=== PATIENT | male | born 1970 | race Caucasian/White ===

== ENCOUNTER → 2023-10-14 | Outpatient (CLI) | payer BC, SELFPAY ==
[2023-10-14 17:58] LABS: Cholesterol 162 mg/dL (200); High Density Lipoprotein 40 mg/dL; PSA,Total - Annual Screen 1.31 ng/mL (0.00-4.00); Triglycerides 293 mg/dL; Very Low Density Lipoprotein 59 mg/dL (5-40)
[2023-10-14 18:06] LABS: Hemoglobin A1c 5.4 % (3.8-5.6)
== END | disposition home or self-care (01) ==
LOC: BFHLAB 15:04
PROVIDERS: PCP Family Medicine; Visit Provider Family Medicine
DX: Z00.00 Encounter for general adult medical examination without abnormal findings (principal); Z12.5 Encounter for screening for malignant neoplasm of prostate
CPT/HCPCS: 36415; 80061; 83036; 84153; G0103

== ENCOUNTER → 2024-06-05 | Outpatient (CLI) | payer BC, SELFPAY ==
[2024-06-05 12:03] LABS: Absolute Lymphocyte Count 1.69 X10^3/uL (0.83-4.51); Absolute Neutrophil Count 2.5 X10^3/uL (2.0-7.7); Basophil# 0.03 X10^3/uL; Basophil% 0.6 % (0-1); Eosinophil# 0.22 X10^3/uL; Eosinophils% 4.4 % (0-5); Hematocrit 45.7 % (40-54); Hemoglobin 15.7 g/dL (13.0-16.5); Lymphocyte # 1.69 X10^3/ul (0.83-4.51); Lymphocyte % 34.1 % (19-41); Mean Corp Hgb Conc 34.4 g/dL (32-36); Mean Corpuscular Volume 87.4 fL (80-94); Mean Platelet Vol. 10.2 fl (6.2-12.0); Monocyte% 10.1 % (0-10); NRBC Flagged by Analyzer 0 % (0-5); Neutrophil # 2.51 X10^3/uL (2.7-7.7); Neutrophil % 50.6 % (47-70); Platelet Count 188 K/mm3 (150-450); RBC Distribution Width CV 11.9 % (11.6-14.6); RBC Distribution Width SD 37.7 fl (35.1-43.9); Red Blood Count 5.23 M/mm3 (4.6-6.2)
[2024-06-05 12:27] LABS: BNP,B-Type NATRIURETIC PEPTIDE 11.2 pg/mL (0-100)
[2024-06-05 12:34] LABS: AST(SGOT) 15 U/L (15-37); Alanine Aminotransfer ALT/SGPT 33 U/L (16-61); Albumin, Serum 3.9 g/dL (3.2-5.0); Alkaline Phosphatase 61 U/L (45-117); Anion Gap 5 (5-15); BUN 12 mg/dL (7-18); BUN/Creat Ratio 15.1 RATIO (10-20); Calcium,Total 9.4 mg/dL (8.5-10.1); Chloride 106 mmol/L (98-107); EST Glomerular Filtration Rate 108 mL/min (>60); Est Glom Filt Rate - Afr Amer 130 mL/min (>60); Glucose 117 mg/dL (74-106); Potassium 4.2 mmol/L (3.5-5.1); Protein, Total 7.9 g/dL (6.4-8.2); Sodium Level 136 mmol/L (136-145)
== END | disposition home or self-care (01) ==
LOC: BFHLAB 10:46
PROVIDERS: PCP Nurse Practitioner Family; Referring Provider Nurse Practitioner Family; Visit Provider Nurse Practitioner Family
DX: R60.0 Localized edema (principal); Z82.49 Family history of ischemic heart disease and other diseases of the circulatory system
CPT/HCPCS: 36415; 80053; 83880; 85025

== ENCOUNTER → 2024-06-27 | Outpatient (CLI) | payer BC, SELFPAY ==
--- NOTE | 2024-06-27 14:02 | VDLE_ITS ---
Reason For Study: Venous Incompetence RIGHT LEFT CFV is compressible, spontaneous, phasic, CFV is compressible, spontaneous, phasic, competent and demonstrates normal competent, and demonstrates normal augmentation. augmentation. FV is compressible, spontaneous, phasic, FV is compressible, spontaneous, phasic, competent and demonstrates normal competent and demonstrates normal augmentation. augmentation. POP V is compressible, spontaneous, phasic, POP V is compressible, spontaneous, phasic, competent and demonstrates normal competent and demonstrates normal augmentation. augmentation. T/P Trunk is compressible. T/P Trunk is compressible. PTV is compressible. PTV is compressible. RT PerV is compressible. LT PerV is compressible. SFJ is competent and measures 0.61 cm. SFJ is competent and measures 0.74 cm. GSV proximal thigh measures 0.37 x 0.37 cm. GSV proximal thigh measures 0.57 x 0.58 cm. GSV at knee measures 0.42 x 0.44 cm. GSV at knee measures 0.49 x 0.48 cm. GSV is competent throughout. GSV INCOMPETENT throughout for greater than SSV at junction is competent and measures 0.5 seconds. 0.59 cm. SSV at junction is competent and measures SSV proximal calf is competent and measures 0.51 cm. 0.40 x 0.45 cm. SSV proximal calf is competent and measures SSV mid calf is INCOMPETENT for greater than 0.40 x 0.43 cm. 0.5 seconds and measures 0.41 x 0.41 cm. Procedure Exam performed in department. This is a venous duplex using B-mode, color flow and spectral Doppler. The exam was diagnostic. Patient was scanned in reverse Trendelenburg position during reflux assessment. VL/Venous Duplex US - Arnoldo Extrem Interpretation Summary Deep veins of the bilateral lower extremities are patent and compressible segme ntally. There is no evidence of bilateral lower extremity deep vein thrombosis. The bilateral great saphenous vein appears patent and compressible segmentally. Positive for reflux in the right small saphenous vein Positive for reflux in the left great saphenous vein throughout. Ordering Physician: Mehnaz Dodd Referring Physician: Surendra Pablo Performed By: Tong Hatch RVT
== END | disposition home or self-care (01) ==
PROVIDERS: PCP Family Medicine; Referring Provider Nurse Practitioner Family; Visit Provider Nurse Practitioner Family
DX: I87.2 Venous insufficiency (chronic) (peripheral) (principal); R60.0 Localized edema; M79.604 Pain in right leg; M79.605 Pain in left leg
CPT/HCPCS: 93970

== ENCOUNTER → 2025-03-05 | Outpatient (CLI) | payer BC, SELFPAY ==
[2025-03-05 17:17] LABS: PSA,Total - Annual Screen 1.92 ng/mL (0.02-4.00)
--- OUTSIDE RECORDS SUMMARY | 2025-03-05 23:04 | XMS RPT_ITS | CCD ---
Author Organization [facility] Inform ion Partnership [facility] Care Team Providers Care Police Officer Name Role Phone Lauryn Campbell Unavailable [facility] Unavailable Unavailable Karen James Unavailable Unavailable Karen James Unavailable Unavailable [facility] Unavailable Unavailable [facility] Unavailable Unavailable Emmanuel Pacheco Unavailable Unavailable [facility] Unavailable Unavailable Karen James Unavailable Unavailable Karen James Unavailable Unavailable [facility] Unavailable Unavailable Rey Stoner Unavailable Unavailable Rey Stoner C Unavailable Unavailable Rey Stoner Unavailable Unavailable Herbie Rey C Unavailable Unavailable LOIDA CROWELL Admitting Unavailable LOIDA CROWELL Referring Unavailable GOYO PABLO Primary Care Unavailable LOIDA CROWELL Attending Unavailable GOYO PABLO Primary Care Unavailable Goyo Pablo Primary Care Provider Goyo Pablo Primary Care Unavailable Goyo Pablo Attending Unavailable Yousif, Mehnaz Primary Care Unavailable Yousif, Mehnaz Attending Unavailable Yousif, Mehnaz Referring Unavailable Yousif, Mehnaz Attending Unavailable Yousif, Mehnaz Referring Unavailable Goyo Pablo Primary Care Unavailable Yousif, Mehnaz Primary Care Unavailable Yousif, Mehnaz Referring Unavailable Iain Arias Attending Unavailable Allergies Allergy Classification Reported Allergen(s) Allergy Type Date of Onset Reaction(s) Facility (6 sources) cultivated mushroom allergenic extract; Translations: [MUSHROOM] Propensity to adverse reactions to drug 01-09-[address] [facility] (2 sources) cultivated mushroom extract Drug Allergy 01-09-[address] [facility] Medications Current Medications Medication Drug Class(es) Dates Sig (Normalized) Sig (Original) multivitamin (multivitamin) per tablet (2 sources) take 1 tablet by mouth once daily multivitamin (multivitamin) per tablet Take 1 tablet by mouth daily. 0 Active Multivitamin Tablet (2 sources) take 1 tablet by mouth once daily multivitamin (multivitamin) per tablet Take 1 tablet by mouth daily. Active Completed/Discontinued Medications Medication Drug Class(es) Dates Sig (Normalized) Sig (Original) acetaminophen 325 mg / oxyCODONE hydrochloride 5 mg oral tablet (4 sources) Opioid Agonist Start: 03-20-2018 End: 10-09-2020 take 1 tablet by mouth every six hours as needed for pain oxyCODONE-acetamino phen (PERCOCET) 5-325 mg per tablet Indications: Labral tear of shoulder, left, subsequent encounter , Contusion of left shoulder, initial encounter Take 1 (one) tablet by mouth every 6 (six) hours as needed for pain for pain. 30 tablet 0 03/20/2018 10/09/2020 Discontinued (Discontinued by another clinician) Start: 03-03-2018 End: 03-20-2018 take 5-325 tablets by mouth once for pain oxyCODONE-acetaminophen (PERCOCET) 5-325 mg per tablet Take 5-325 tablets by mouth for pain. 0 03/03/2018 03/20/2018 Discontinued ibuprofen 200 mg oral tablet (5 sources) Nonsteroidal Anti-inflammatory Drug End: 10-09-2020 take 4 tablets by mouth every six hours as needed ibuprofen (ADVIL,MOTRIN) 200 MG tablet Take 800 mg by mouth every 6 (six) hours as needed for pain. 0 10/09/2020 Discontinued (Discontinued by another clinician) Problems Active Problems Problem Classification Problem Date Documented Date Episodic/Chronic Other diseases of veins and lymphatics (1 source) Venous insufficiency (chronic) (peripheral); Translations: [Venous insufficiency (chronic) (peripheral)] Onset: 07-18-2024 Episodic Residual codes; unclassified (1 source) Localized edema; Translations: [Localized edema] Onset: 06-26-2024 Episodic Sprains and strains (2 sources) Glenoid labrum tear Episodic Unclassified (1 source) Acute tear of medial meniscus of left knee; Translations: [Acute medial meniscus tear of left knee, initial encounter] Past or Other Problems Problem Classification Problem Date Documented Da te Episodic/Chronic Unclassified (2 sources) Contusion of left shoulder, initial encounter Results Test Name Value Interpretation Reference Range Facility Venous Duplex US - Arnoldo Extre mon 06-27-2024 Venous Duplex US - Arnoldo [facility] [address] [place] [address] Venous Duplex US - Arnoldo [facility] 06/27/24 1406 MR#: [id number] Acct: [id number] Name: GEORGE FLORES II Rep #: [id number] : 1970 54 From: Iain Arias MD Attending Dr: BELL Richards Status: REG CL I Ordering Dr: Mehnaz Dodd Date: 06/27/24 Location: CVS Sex: M C Admitted: Reason For Study: Venous Incompetence RIGHT LEFT CFV is compressible, spontaneous, phasic, CFV is compressible, spontaneous, phasic, competent and demonstrates normal competent, and demonstrates normal augmentation. augmentation. FV is compressible, spontaneous, phasic, FV is compressible, spontaneous, phasic, competent and demonstrates normal competent and demonstrates normal augmentation. augmentation. POP V is compressible, spontaneous, phasic, POP V is compressible, spontaneous, phasic, competent and demonstrates normal competent and demonstrates normal augmentation. augmentation. T/P Trunk is compressible. T/P Trunk is compressible. PTV is compressible. PTV is compressible. RT PerV is compressible. LT PerV is compressible. SFJ is competent and measures 0.61 cm. SFJ is competent and measures 0.74 cm. GSV proximal thigh measures 0.37 x 0.37 cm. GSV proximal thigh measures 0.57 x 0.58 cm. GSV at knee measures 0.42 x 0.44 cm. GSV at knee measures 0.49 x 0.48 cm. GSV is competent throughout. GSV INCOMPETENT throughout for greater than SSV at junction is competent and measures 0.5 seconds. 0.59 cm. SSV at junction is competent and measures SSV proximal calf is competent and measures 0.51 cm. 0.40 x 0.45 cm. SSV proximal calf is competent and measures SSV mid calf is INCOMPETENT for greater than 0.40 x 0.43 cm. 0.5 seconds and measures 0.41 x 0.41 cm. Procedure Exam performed in department. This is a venous duplex using B-mode, color flow and spectral Doppler. The exam was diagnostic. Patient was scanned in reverse Trendelenburg position during reflux assessment. VL/Venous Duplex US - Arnoldo Extrem Interpretation Summary Deep veins of the bilateral lower extremities are patent and compressible segmentally. There is no evidence of bilateral lower extremity deep vein thrombosis. The bilateral great saphenous vein appears patent and compressible segmentally. Positive for reflux in the right small saphenous vein Positive for reflux in the left great saphenous vein throughout. Ordering Physician: Mehnaz Dodd Referring Physician: Goyo Pablo Performed By: Tong Hatch [place] 06/27/24 1620 Date Iain Arias MD CC: HOME ENERGY RATER-C Mehnaz Dodd; Dr. Goyo Pablo DO Date Dictated: 06/27/24 1406 Date Transcribed: 06/27/241619 Professor Of English: Signed Normal [facility] BNP,B-Type NATRIURETIC PEPTI Simran 2024 Natriuretic peptide B (Bld) [Mass/Vol] 11.2 pg/mL Normal 0-100 [facility] Comment on above: Performed By: #### L 500.4050, L100.0100, L503.6620 #### [facility] [address] [place], [address] CBC W/Diff, Automatedon 05-27 Absolute Lymph 1.69 X10 3/uL Normal 0.83-4.51 [facility] Comment on above: Performed By: #### L 500.4050, L100.0100, L503.6620 #### [facility] [address] [place], [address] Absolute Neut 2.5 X10 3/uL Normal 2.0-7.7 [facility] Comment on above: Performed By: #### L 500.4050, L100.0100, L503.6620 #### [facility] [address] [place], [address] Basophils/100 WBC (Bld) 0.6 % Normal 0-1 [facility] Comment on above: Performed By: #### L 500.4050, L100.0100, L503.6620 #### [facility] [address] [place], [address] Eosinophils/100 WBC (Bld) 4.4 % Normal 0-5 [facility] Comment on above: Performed By: #### L 500.4050, L100.0100, L503.6620 #### [facility] [address] [place], [address] Erythrocyte distribution width (RBC) [Ratio] 11.9 % Normal 11.6-14.6 [facility] Comment on above: Performed By: #### L 500.4050, L100.0100, L503.6620 #### [facility] [address] [place], [address] Hematocrit (Bld) [Volume fraction] 45.7 % Normal 40-54 [facility] Comment on above: Performed By: #### L 500.4050, L100.0100, L503.6620 #### [facility] [address] [place], [address] Hemoglobin (Bld) [Mass/Vol] 15.7 g/dL Normal 13.0-16.5 [facility] Comment on above: Performed By: #### L 500.4050, L100.0100, L503.6620 #### [facility] [address] [place], [address] IG% 0.200 Normal 0.0-0.9 [facility] Comment on above: Result Comment: IG% - Immature Granulocytes (promyelocytes, myelocytes and metamyelocytes) > 1% indicates that a LEFT SHIFT is Present. Performed By: #### L 500.4050, L100.0100, L503.6620 #### [facility] [address] [place], [address] Lymphocytes/100 WBC (Bld) 34.1 % Normal 19-41 [facility] Comment on above: Performed By: #### L 500.4050, L100.0100, L503.6620 #### [facility] [address] [place], [address] MCH (RBC) [Entitic mass] 30.0 pg Normal 27.0-32.0 [facility] Comment on above: Performed By: #### L 500.4050, L100.0100, L503.6620 #### [facility] [address] [place], [address] MCHC (RBC) [Mass/Vol] 34.4 g/dL Normal 32-36 [facility] Comment on above: Performed By: #### L 500.4050, L100.0100, L503.6620 #### [facility] [address] [place], [address] MCV (RBC) [Entitic vol] 87.4 fL Normal 80-94 [facility] Comment on above: Performed By: #### L 500.4050, L100.0100, L503.6620 #### [facility] [address] [place], [address] Monocytes/100 WBC (Bld) 10.1 % High 0-10 [facility] Comment on above: Performed By: #### L 500.4050, L100.0100, L503.6620 #### [facility] [address] [place], [address] Neutrophils/100 WBC (Bld) 50.6 % Normal 47-70 [facility] Comment on above: Performed By: #### L 500.4050, L100.0100, L503.6620 #### [facility] [address] [place], [address] Nucleated RBC (Bld) [#/Vol] 0 10*3/uL Normal 0-5 [facility] Comment on above: Performed By: #### L 500.4050, L100.0100, L503.6620 #### [facility] [address] [place], [address] Platelet mean volume (Bld) [Entitic vol] 10.2 fL Normal 6.2-12.0 [facility] Comment on above: Performed By: #### L 500.4050, L100.0100, L503.6620 #### [facility] [address] [place], [address] Platelets (Bld) [#/Vol] 188 10*3/uL Normal 150-450 [facility] Comment on above: Performed By: #### L 500.4050, L100.0100, L503.6620 #### [facility] [address] [place], [address] RBC (Bld) [#/Vol] 5.23 10*6/uL Normal 4.6-6.2 [facility] Comment on above: Performed By: #### L 500.4050, L100.0100, L503.6620 #### [facility] [address] [place], [address] RDW SD 37.7 fl Normal 35.1-43.9 [facility] Comment on above: Performed By: #### L 500.4050, L100.0100, L503.6620 #### [facility] [address] [place], [address] WBC (Bld) [#/Vol] 5.0 10*3/uL Normal 4.4-11.0 [facility] Comment on above: Performed By: #### L 500.4050, L100.0100, L503.6620 #### [facility] [address] [place], [address] Comprehensive Metabolic Prof ilon 2024 Albumin [Mass/Vol] 3.9 g/dL Normal 3.2-5.0 [facility] Comment on above: Performed By: #### L 500.4050, L100.0100, L503.6620 #### [facility] [address] [place], [address] Albumin/Globulin [Mass ratio] 1.0 {ratio} Normal 0.9-2.4 [facility] Comment on above: Performed By: #### L 500.4050, L100.0100, L503.6620 #### [facility] [address] [place], [address] ALK P 61 U/L Normal 45-117 [facility] Comment on above: Performed By: #### L 500.4050, L100.0100, L503.6620 #### [facility] [address] [place], [address] ALT [Catalytic activity/Vol] 33 U/L Normal 16-61 [facility] Comment on above: Performed By: #### L 500.4050, L100.0100, L503.6620 #### [facility] [address] [place], [address] AST [Catalytic activity/Vol] 15 U/L Normal 15-37 [facility] Comment on above: Performed By: #### L 500.4050, L100.0100, L503.6620 #### [facility] [address] [place], [address] Bilirubin [Mass/Vol] 0.60 mg/dL Normal 0.20-1.00 [facility] Comment on above: Result Comment: For patients on eltrombopag therapy, use of Dimension [place] TBIL is not recommended. Performed By: #### L 500.4050, L100.0100, L503.6620 #### [facility] [address] [place], [address] BUN/CRE 15.1 RATIO Normal 10-20 [facility] Comment on above: Performed By: #### L 500.4050, L100.0100, L503.6620 #### [facility] [address] [place], [address] CA,Total 9.4 mg/dL Normal 8.5-10.1 [facility] Comment on above: Performed By: #### L 500.4050, L100.0100, L503.6620 #### [facility] [address] [place], [address] Chloride [Moles/Vol] 106 mmol/L Normal 98-107 [facility] Comment on above: Performed By: #### L 500.4050, L100.0100, L503.6620 #### [facility] [address] [place], [address] CO2 [Moles/Vol] 25.0 mmol/L Normal 21.0-32.0 [facility] Comment on above: Performed By: #### L 500.4050, L100.0100, L503.6620 #### [facility] [address] [place], [address] Creatinine [Mass/Vol] 0.80 mg/dL Normal 0.70-1.30 [facility] Comment on above: Result Comment: The validity of the calculated GFR GFRAA in patients over 70 years has not been determined. Clinical correlation is essential. Performed By: #### L 500.4050, L100.0100, L503.6620 #### [facility] [address] [place], [address] EST GFR - AA 130 mL/min Normal >60 [facility] Comment on above: Result Comment: Afri can Russian GFR Calc Performed By: #### L 500.4050, L100.0100, L503.6620 #### [facility] [address] [place], [address] GAP 5 Normal 5-15 [facility] Comment on above: Performed By: #### L 500.4050, L100.0100, L503.6620 #### [facility] [address] [place], [address] GFR/1.73 sq M.predicted among non-blacks MDRD (S/P/Bld) [Vol rate/Area] 108 mL/min/{1.73_m2} Normal >60 [facility] Comment on above: Result Comment: Non- GFR Calc Performed By: #### L 500.4050, L100.0100, L503.6620 #### [facility] [address] [place], [address] Globulin (S) [Mass/Vol] 4.0 g/dL Normal 2.2-4.2 [facility] Comment on above: Performed By: #### L 500.4050, L100.0100, L503.6620 #### [facility] [address] [place], [address] Glucose [Mass/Vol] 117 mg/dL High 74-106 [facility] Comment on above: Result Comment: Fast ing Glucose result from 100 to 125 mg/dL suggests IMPAIRED HOMEOSTASIS per A.D.A. criteria. Performed By: #### L 500.4050, L100.0100, L503.6620 #### [facility] [address] [place], [address] Potassium [Moles/Vol] 4.2 mmol/L Normal 3.5-5.1 [facility] Comment on above: Performed By: #### L 500.4050, L100.0100, L503.6620 #### [facility] [address] [place], [address] Sodium [Moles/Vol] 136 mmol/L Normal 136-145 [facility] Comment on above: Performed By: #### L 500.4050, L100.0100, L503.6620 #### [facility] [address] [place], [address] T PROT 7.9 g/dL Normal 6.4-8.2 [facility] Comment on above: Performed By: #### L 500.4050, L100.0100, L503.6620 #### [facility] [address] [place], [address] Urea nitrogen [Mass/Vol] 12 mg/dL Normal 7-18 [facility] Comment on above: Performed By: #### L 500.4050, L100.0100, L503.6620 #### [facility] [address] [place], [address] Basophil percentageOrdered B y: Goyo Pablo on 10-14-2023 Cholesterol [Mass/Vol] 162 mg/dL <200 [facility] Comment on above: <200 mg/dL Desirable 200-240 mg/dL Borderline >240 mg/dL High Risk Triglyceride [Mass/Vol] 293 mg/dL <199 [facility] Comment on above: The drugs N-Acetylcy steine and Metamizole may falsely depress this assay.Serum Triglycerides Reference Interval Normal <150 mg/dL Borderline high 150 - 199 mg/dL High 200 - 499 mg/dL Very High > or = 500 mg/dL Hemoglobin A1con 10-14-2023 HbA1c (Bld) [Mass fraction] 5.4 % Normal 3.8-5.6 [facility] Comment on above: Result Comment: Norm al < 5.7 % Prediabetic 5.7 - 6.4 % Diabetic >or= 6.5 % Please note range changes. Performed By: #### L 500.4100, L501.9985, L501.9910 #### [facility] [address] [place], [address] High density lipoprotein (HD L) measurementOrdered By: Goyo Pablo on 10-14-2023 Cholesterol in HDL (Body fld) [Mass/Vol] 40 mg/dL >40 [facility] Comment on above: The drugs N-Acetylcy steine and Metamizole may falsely depress this assay. Reference Range HDL <40 mg/dL Low HDL Cholesterol HDL >or= 60 mg/dL High HDL Cholesterol Lipid Profileon 10-14-2023 Cholesterol [Mass/Vol] 162 mg/dL Normal 200 [facility] Comment on above: Result Comment: <200 mg/dL Desirable 200-240 mg/dL Borderline >240 mg/dL High Risk Performed By: #### L 500.4100, L501.9985, L501.9910 #### [facility] [address] [place], [address] Cholesterol in HDL [Mass/Vol] 40 mg/dL Normal [facility] Comment on above: Result Comment: The drugs N-Acetylcysteine and Metamizole may falsely depress this assay. Reference Range HDL <40 mg/dL Low HDL Cholesterol HDL >or= 60 mg/dL High HDL Cholesterol Performed By: #### L 500.4100, L501.9985, L501.9910 #### [facility] [address] [place], [address] Cholesterol in LDL [Mass/Vol] 63 mg/dL Normal 0-130 [facility] Comment on above: Performed By: #### L 500.4100, L501.9985, L501.9910 #### [facility] [address] [place], [address] Cholesterol in VLDL [Mass/Vol] 59 mg/dL High 5-40 [facility] Comment on above: Performed By: #### L 500.4100, L501.9985, L501.9910 #### [facility] [address] [place], [address] Triglyceride [Mass/Vol] 293 mg/dL High [facility] Comment on above: Result Comment: The drugs N-Acetylcysteine and Metamizole may falsely depress this assay. Serum Triglycerides Reference Interval Normal <150 mg/dL Borderline high 150 - 199 mg/dL High 200 - 499 mg/dL Very High > or = 500 mg/dL Performed By: #### L 500.4100, L501.9985, L501.9910 #### [facility] [address] [place], [place], [id number] Low density lipoprotein (LDL ) cholesterol measurementOrdered By: Goyo Pablo on 10-14-2023 Cholesterol in LDL (Body fld) [Moles/Vol] 63 mg/dL 0-130 [facility] PSA,Total - Annual Screenon 10-14-2023 PSA,TOT SCREEN 1.31 ng/mL Normal 0.00-4.00 [facility] Comment on above: Result Comment: This test was performed using the TPSA assay method for the [employer] chemistry system. Values obtained with different assay methods cannot be used interchangably. When changing PSA assays in the course of monitoring a patient, additional sequential testing should be carried out to confirm baseline values. Performed By: #### L 500.4100, L501.9985, L501.9910 #### [facility] [address] [place], [place], [id number] Screening prostate specific antigen (PSA) measurementOrdered By: Goyo Pablo on 10-14-2023 Prostate specific Ag IA [Mass/Vol] 1.31 ng/mL 0.00-4.00 [facility] Comment on above: This test was perfor med using the TPSA assay method for [employer] chemistry system. Values obtained with differentassay methods cannot be used interchangably.When changing PSA assays in the course of monitoring apatient, additional sequential testing should be carriedout to confirm baseline values. Very low density lipoprotein (VLDL) cholesterol measurementOrdered By: Goyo Pablo on 10-14-2023 Cholesterol in VLDL Calc [Moles/Vol] 59 mg/dL 5-40 [facility] Whole blood hemoglobin A1c/t otal hemoglobin ratio (mass fraction)Ordered By: Goyo Pablo on 10-14-2023 HbA1c (Bld) [Mass fraction] 5.4 % 3.8-5.6 [facility] Comment on above: Normal < 5.7 % Predi abetic 5.7 - 6.4 % Diabetic >or= 6.5 % Please note range changes. Provider Note - ED v2on 04-0 Provider Note - ED v2 Provider Note - ED v2: Chart Review: ED NOTES ED NOTES: HPI: Patient is a 50-year-old male chief complaint of low back pain. Started at the end of dinner this evening around 530. Had abrupt onset of sharp low back pain. States it was about a 10 out of 10 and almost took his breath away. He was on both sides of the low back. Did not lose control of bowel or bladder. No loss of function. Gradually reduced to about a 7 out of 10 which is where it is now. He is ambulatory. His drove him in. ROS: All systems are negative other than as noted in HPI. Physical Exam I have reviewed the triage vital signs. Const: Well nourished, well developed, appears stated age, no acute distress Eyes: PERRL, EOM intact, no conjunctival injection, vision grossly normal HENT: Neck supple without meningismus , Moist mucous membranes, no pharyengeal swelling or exudate CV: Regular rate and rhythm, Warm, well-perfused extremities. Chest non tender RESP: Lungs clear bilaterally, Unlabored respiratory effort GI: soft, non-tender, non-distended, no masses : MSK: No gross deformities appreciated. Focal tenderness bilateral PSIS. No significant midline tenderness. Straight leg raise negative bilaterally. Normal sensation and strength. No saddle anesthesia. Skin: Warm, dry. No rashes Neuro: Alert and oriented x4, GCS 15 , college tutor II-XII grossly intact. Sensation and motor function of extremities grossly intact. Psych: Appropriate mood and affect. HISTORY OF PRESENTING ILLNESS GEORGE is a 50 year old Male and was seen by me at 29-Dec-2020 20:55 for a chief complaint of back pain (lower back pain that started around 1730 this evening. radiates around right side. denies injury.)(1). Triage Information: Most recent Vital Sign Value Date Temp (F): 98.5 12-29-2020 19:45 Temp (C): 36.9 12-29-2020 19:45 Heart Rate (beats/min): 86 12-29-2020 19:45 Respirations (breaths/min): 18 12-29-2020 19:45 SpO2 (%): 94 12-29-2020 19:45 BP Systolic (mm Hg): 143 12-29-2020 19:45 BP Diastolic (mm Hg): 92 12-29-2020 19:45 PAST MEDICAL HISTORY ATTESTATION: I have reviewed and confirmed nurse's/medic's notes for patient's medications, allergies, and medical, surgical, family and social history ALLERGIES/INTOLERANCES: No Known Allergies HEALTH HISTORY: No documented data. OUTPATIENT MEDICATIONS: Home Medications Review Status for Reconciliation: N/A Med Status: Patient Currently Takes Medications Drug Name: Naprosyn 500 mg oral tablet Instructions: 1 tab(s) orally 2 times a day x 10 days SIGNIFICANT EVENTS: Past Medical History Description:pt denies Past Surgical History Description:Appendectomy Description:knees, shoulder RESULTS/VITAL SIGNS RESULTS: Radiology Results: Impression: 1. No acute finding. 2. Minimal spondylosis. Xray Lumbar Spine AP + Lateral [Dec 29 2020 10:03PM] VITAL SIGNS: T PRBP SpO2O2(LPM) %FiO2 Method 29-Dec-2020 21:48:[id number] 95 room air, no respiratory support 29-Dec-2020 19:45:[id number] 94 room air, no respiratory support MEDICAL DECISION MAKING/ED COURSE MDM/ED COURSE: X-rays negative for acute findings. Recommend rest, anti-inflammatory medications. Will provide short course of some pain medicine and muscle relaxer as well. CLINICAL IMPRESSION Diagnosis/Annotation: ED Dx Name:Low back pain Code:M54.5 Disposition: discharged Type: home ATTESTATION CRITICAL CARE TIME Is this a critically ill patient: no Electronic Signatures: Vickie Moseley) (Signed 29-Dec-2020 22:24) Authored: ED Notes, HPI, PMH, PE, Results/Vital Signs, MDM/ED Course, CDS/Scales, Clinical Impression, Attestation, Chart Review, Scores Last Updated: 29-Dec-2020 22:24 by Vickie Moseley () References: 1. Data Referenced From Triage - ED 29-Dec-2020 19:45 [facility] Risk Screen - Adult Emergenc yon 12-29-2020 Risk Screen - Adult Emergency Preferred Language: Preferred Language: Preferred Language for Discussing Health Care (patient/designee)Chayo friedman Advanced Directives: Advance Directive/DNRno Family Violence Adult: Abuse Screen: Are you or have you been threatened or abused physically, emotionally, or sexually by anyoneno Learning Assessment (Patient): Learning Assessment (Patient): Patient is Able to be Assessed for Learningyes Factors Influencing Readiness to Learnpain Factors that Impact Ability to Learnnone Devices/Methods Used to Communicatenone Learning Preferencesaudio Cultural Considerationsnone Developmental Considerationsnone Buddhism Considerationsnone Learning Assessment (Other Learner): Learning Assessment (Other Learner): Other learner availableno Pressure Injury/TB/Substance: Pressure Injury: Do you have a coughno Substance Use Current or Former Historynever: Cigarette/Tobacco, e-Cigarette/Vaping, Street Drugs YES: Alcohol Alcohol Useoccasionally Admission Risk Screen: Significant IndicatorsComplete CAGE: CAGE: Is this an injured [place] [place]/[place] /[place]): no Electronic Signatures: Araceli Riley (DELFIN) (Signed 29-Dec-2020 19:49) Authored: Preferred Language, Advanced Directives, Family Violence Adult, Learning Assessment (Patient), Learning Assessment (Other Learner), Pressure Injury/TB/Substance, Pressure Injury, CAGE Last Updated: 29-Dec-2020 19:49 by Araceli Riley (DELFIN) [facility] SPINE, LUMBOSACRAL 2 OR 3 EWSon 12-29-2020 SPINE, LUMBOSACRAL 2 OR 3 VIEWS Patient Name: GEORGE FLORES STUDY: Lumbar spine x-rays INDICATION: LBP COMPARISON: None ACCESSION NUMBER(S): [id number] ORDERING CLINICIAN: VICKIE MOSELEY TECHNIQUE: Three views of the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 SEQUENTIAL INFLUENZA VACCINE (#1) [facility] Start: 1988 Hepatitis C antibody, confirmatory test Hepatitis C Screening [facility] Start: 1986 COVID-19 Vaccine (1 of 2) COVID-19 Vaccine (1 of 2) [facility] Start: 1985 HIV screening HIV Screening [facility] Start: 1982 Adolescent depression screening assessment Depression Screening (PHQ9) [facility] Start: 1973 History and physical examination, annual for health maintenance Wellness Visit [facility] Start: 1970 Prostate specific antigen measurement PSA Level [facility] Start: 1970 Tetanus vaccination 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 [employer] [id number] 2016-Present [id number] 2011 Unknown [id number] 2011 Unknown JOE APARICIO/OSCAR/HMO/PPO [id number] 2011-Present [id number] 1970 Unknown [id number] 1970 Unknown [id number] Unknown [id number] Unknown 1935 [id number] Unknown [id number] Unknown [id number] Social History Date Type Detail Facility Start: 02-07-2018 End: 10-09-2020 Tobacco smoking status MIIS Never smoker [facility] Sex Assigned At Not on file [facility] Start: 10-09-2020 Tobacco use and exposure Never used [facility] Start: 10-09-2020 Alcohol intake Current drinke r of alcohol (finding) [facility] Exposure to SARS-CoV -2 (event) Not sure [facility] Start: 1970 Sex Assigned At Male W [facility] Evaluation note Note Date & Type Note Facility Evaluation note No assessment information availa [facility] Work Phone: Assessments Diagnosis Contusion of left scapula, i nitial encounter - Primary Labral tear of shoulder, lef t, subsequent encounter Diagnosis Contusion of left scapula, i nitial encounter - Primary Contusion of left shoulder, initial encounter Sprain of left shoulder, uns pecified shoulder sprain type, initial encounter Sprain of left shoulder, uns pecified shoulder sprain type, subsequent encounter Diagnosis Labral tear of shoulder, lef t, subsequent encounter - Primary Contusion of left shoulder, initial encounter Diagnosis Labral tear of shoulder, lef t, subsequent encounter - Primary Contusion of left shoulder, initial encounter Diagnosis Acute medial meniscus tear of left knee, initial encounter- Primary Summary Purpose Family History No Family History Records FoundNo Family History Records FoundNo Family History Records FoundNo Family History Records FoundNo Family History Records Found Advance Directives No Advanced Directives Records FoundDocuments on File Type Date Recorded 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 is a he with left knee pain. Chief Complaint Patient presents with Left Knee - Pain . HPI: Knee Pain: Patient presents to the office with left knee pain. He states that this past Tuesday, 2 days ago, he was moving some things and twisted his knee, feeling a pop and sharp pain. He has had increased swelling and pain in the left knee. He has been using ice and taking OTC pain relievers as needed which have helped with pain control. He states that stairs are a little difficult to go up and down but he denies any instability of the knee. 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 His concern is that he will be at work, having to chasea suspect and have the knee give out on him. It has improved within the last two days but again, just wanted the knee checked out. PMH: Allergies Allergen Reactions Mushroom Current Outpatient Medications: multivitamin (multivitamin) per tablet, Take 1 tablet by mouth daily., Disp: , Rfl: Past Medical History: Diagnosis Date Arm numbness Arm weakness Fractures Kidney stone Tooth decay Past Surgical History: Procedure Laterality Date APPENDECTOMY ARTHROSCOPY KNEE Right SHOULDER SURGERY Social History Socioeconomic History Marital status: Spouse name: Not on file Number of children: Not on file Years of education: Not on file Highest education level: Not on file Occupational History Not on file Social Needs Financial resource strain: Not on file Food insecurity Worry: Not on file Inability: Not on file Transportation needs Medical: Not on file Non-medical: Not on file Tobacco Use Smoking status: Never Smoker Smokeless tobacco: Never Used Substance and Sexual Activity Alcohol use: Yes Drug use: Not on file Sexual activity: Not on file Lifestyle Physical activity Days per week: Not on file Minutes per session: Not on file Stress: Not on file Relationships Social connections Talks on phone: Not on file Gets together: Not on file Attends pentecostal service: Not on file Active member of club or organization: Not on file Attends meetings of clubs or organizations: Not on file Relationship status: Not on file Other Topics Concern Not on file Social History Narrative Not on file The patient's past medical history, surgical history, social history, family history, medications and allergies were reviewed with the patient today and are available in the chart for further review. ROS: Review of Systems Constitutional: Negative for activity change and fatigue. HENT: Negative for congestion, hearing loss and trouble swallowing. Eyes: Negative for visual disturbance. Respiratory: Negative for chest tightness and shortness of breath. Cardiovascular: Negative for chest pain and palpitations. Gastrointestinal: Negative for abdominal pain, diarrhea, nausea and vomiting. Endocrine: Negative for polydipsia, polyphagia and polyuria. Genitourinary: Negative for decreased urine volume, difficulty urinating and hematuria. Musculoskeletal: Positive for arthralgias and joint swelling. Negative for myalgias. Skin: Negative for color change, rash and wound. Allergic/Immunologic: Negative for immunocompromised state. Neurological: Negative for dizziness, weakness, light-headedness and numbness. Hematological: Does not bruise/bleed easily. Psychiatric/Behavioral: Negative for confusion and sleep disturbance. The patient is not nervous/anxious. PE: Physical Exam Constitutional: He is oriented to person, place, and time. He appears well- developed and well-nourished. HENT: Head: Normocephalic. Eyes: Pupils are equal, round, and reactive to light. Neck: Normal range of motion. Neck supple. Cardiovascular: Normal rate and regular rhythm. Pulmonary/Chest: Effort normal and breath sounds normal. Abdominal: Soft. Bowel sounds are normal. Musculoskeletal: Normal range of motion. General: Tenderness and edema present. Left knee: He exhibits swelling and effusion. Tenderness found. Medial joint line and lateral jointline tenderness noted. Neurological: He is alert and oriented to person, place, and time. Skin: Skin is warm and dry. ORTHO: Left Knee Exam Tenderness The patient is experiencing tenderness in the lateral joint line and medial joint line. Range of Motion The patient has normal left knee ROM. Tests Cindy: Medial - positive Lateral - negative Varus: negative Valgus: negative Anthony: Anterior - negative Drawer: Anterior - negative Posterior - negative Other Erythema: absent Scars: absent Sensation: normal Pulse: present Swelling: mild Effusion: effusion present Imaging: L Knee 1. Tkyn-oo-lheuonax tibiofemoral joint compartmental osteoarthritis bilaterally. 2. Mild patellofemoral joint degenerative changes. 3. No acute osseous abnormality. 4. Suspect small suprapatellar joint effusion. Assessment/Plan: After examination and reviewing of the patient's x-ray images, we discussed treatment options. At this time, I would like him to continue using RICE therapy and OTC pain relievers asneeded. I also suggested the use of a knee brace especially while at work. If he continues to have the pain and inflammation, I will see him back in the office for a cortisone injection. The patient verbalizes understanding and is in agreement with the treatment plan. Diagnosis: Problem List Items Addressed This Visit None Follow Up: No follow-ups on file. Loida Crowell CNP documented in this encounter Additional Source Comments (unrecognized sect ion and content) No Status Records FoundNo Status Records FoundNo Status Records FoundNo Status Records FoundNo Status Records Found INFORMATION SOURCE (unrecogn ized section and content) DATE CREATED AUTHOR 03/14/2018 [facility] DATE CREATED AUTHOR AUTHOR'S ORGANIZ ATION 03/21/2018 [facility] DATE CREATED AUTHOR AUTHOR'S ORGANIZ ATION 10/19/2020 [facility] DATE CREATED AUTHOR AUTHOR'S ORGANIZ ATION 01/02/2021 [facility] DATE CREATED AUTHOR AUTHOR'S ORGANIZ ATION 08/16/2024 [facility] Reason for Visit (unrecogniz ed section and content) Reason Comments Pain Care Teams (unrecognized sec tion and content) Team Status: Active Member Role Status Dates Dr. Goyo Pablo DO Primary Care Provider Active Team Status: Inactive Member Role Status Dates Dr. Goyo Pablo DO Primary Care Provider, [facility] Provider Active Goals (unrecognized section and content) Goals may be documented in a n alternate section FOR RECORDS PERTAINING TO PATIENTS WHO ARE OR HAVE BEEN ENROLLED IN A CHEMICAL DEPENDENCY/SUBSTANCEABUSE PROGRAM, SOME INFORMATION MAY BE OMITTED. This clinical summary was aggregated from multiple sources. Caution should be exercised in using it in the provision of clinical care. This summary normalizes information from multiple sources, and as a consequence, information in this document may materially change the coding, format and clinical context of patient data. In addition, data may be omitted in some cases. CLINICAL DECISIONS SHOULD BE BASED ON THE PRIMARY CLINICAL RECORDS. [facility] [employer]. provides no warranty or guarantee of the accuracy or completeness of information in this document.
== END | disposition home or self-care (01) ==
LOC: BFHLAB 11:20
PROVIDERS: PCP Family Medicine; Visit Provider Family Medicine
DX: Z12.5 Encounter for screening for malignant neoplasm of prostate (principal); R53.83 Other fatigue
CPT/HCPCS: 36415; 84153; 84403; G0103